=== PATIENT | male | born 1975 | race Caucasian/White ===

== ENCOUNTER 2020-12-05 07:18 | Day surgery (SDC) | payer OTHER, SELFPAY ==
[2020-12-02 11:55] VITALS: BMI 30.4
[2020-12-05 08:02] VITALS: BMI 30.7
[2020-12-05 08:04] VITALS: BP 138/92; PULSE 72; RESP 18; TEMP 36.5; O2SAT 98
--- NOTE | 2020-12-05 08:44 | P.CONAN_ITS ---
[facility] Past Medical History Medical History Depression History of posttraumatic stress disorder (PTSD) Family History Family history of problems with anesthesia: No Surgical History Surgical History H/O colonoscopy Hx of cholecystectomy Hx of knee surgery Hx of shoulder surgery History of Problems with Anesthesia: No Social History Social History Smoking Status: Never smoker Use of substances other than those prescribed or required for medical reasons: Yes Advance Directives: No Advance Directives Information Provided: Yes Meds Allergies Allergy/AdvReac Type Severity Reaction Status Date / Time pectin [PECTIN] Allergy Intermediate HISTAMINE Verified 12/05/20 08:00 REACTION morphine [MORPHINE] AdvReac Intermediate VOMITING Verified 12/05/20 08:00 Active Medications: Current Medications Generic Name Dose Route Start Last Admin Trade Name Freq PRN Reason Stop Dose Admin Lactated Ringer's 1,000 mls @ 20 mls/hr 12/05/20 08:45 Lr IVCONT .Q24H AIYANA Sodium Biphosphate/Sodium Phosphate 133 ml 12/05/20 07:59 Sodium Phosphate,Kendall-Dibasic 133 Ml Enema AK ONCE PRN Poor Colonoscopy Prep Results Home Medications Medication Instructions Recorded Confirmed Last Taken Type venlafaxine 75 mg PO DAILY 12/02/20 12/05/20 12/05/20 06:30 History Exam Exam Date and Time: December 05, 2020 0844 Height,Weight and Vital Signs: Height 5 ft 11 in Weight 99.79 kg Last Vital Signs Temp 97.7 F 12/05/20 08:04 Pulse 72 12/05/20 08:04 Resp 18 12/05/20 08:04 BP 138/92 H 12/05/20 08:04 Pulse Ox 98 12/05/20 08:04 Airway Mallampati Class: I TM Dist: >3cm Neck ROM: Full Loose/Missing/Broken Teeth: No Heart: ok Lungs: ok Assessment and Plan Assessment Anesthesia Assessment: Anesthesia Plan Discussed and Chart Reviewed Final Anesthetic Review NPO: Yes ASA Class: I Final Preanesthetic Review: No Changes in Pt Med Stat, Meds/Allgs Chart Reviewed, Consent Obtained/Reviewed and Anes Risks/Benef Reviewed Patient Risk: Low Procedure Risk: Intermediate Anesthetic Plan Anesthetic Plan: GA and Agree w/ Assess. and Plan
[2020-12-05] MEDS: Lactated Ringers 1,000 ML 20 ML IVCONT (08:46)
[2020-12-05 09:54] VITALS: BP 111/69; PULSE 60; RESP 20; TEMP 36.3; O2SAT 92
--- NOTE | 2020-12-05 09:58 | PM.OP ---
Brief Operative Note Date of Service: 12/05/20 Pre-op diagnosis: GERD, Diarrhea Post-op diagnosis: other (Gerd, Gastritis, Colon polyps, R/O Celiac disease, R/O Microscopic colitis) Procedure: EGD with biopsies, Colonoscopy to the cecum and TI with snare polypectomy x 3 with placement of Resolution clips on the asc. colon and at 20cm polyps, and biopsies Surgeon: Mynor Mccollum Anesthesia: MAC Estimated blood loss (mL): 4.0 Pathology: other (A. Desc. duodenum B. Gastric antrum C. EG Junction at 39cm D.Cecal polyp E. Asc. colon biopsies F. Asc. colon polyp G. Descending colon biopsies H. Polyp at 20cm I. Rectal polyp) Condition: stable Disposition: PACU
[2020-12-05 10:09] VITALS: BP 116/78; PULSE 54; RESP 17; TEMP 36.3; O2SAT 96
--- NOTE | 2020-12-09 12:55 | OP_ITS ---
SURGEON: Mynor Mccollum MD INDICATIONS: Full consent has been obtained from him for both procedures, including risks of bleeding and perforation. PREOPERATIVE DIAGNOSIS: POSTOPERATIVE DIAGNOSIS: PROCEDURE PERFORMED: Esophagogastroduodenoscopy with biopsies, and colonoscopy to cecum and terminal ileum with snare polypectomy, placement of resolution clips, and biopsies. ESTIMATED BLOOD LOSS: COMPLICATIONS: ANESTHESIA: Monitored anesthesia care. ASSISTANTS: SPECIMENS: PREOPERATIVE DIAGNOSES: Gastroesophageal reflux, diarrhea. POSTOPERATIVE DIAGNOSES: Gastroesophageal reflux, diarrhea, rule out celiac disease, rule out microscopic colitis, colon polyps, internal hemorrhoids. DESCRIPTION OF PROCEDURE: The patient was placed in the left lateral decubitus position. The Olympus video gastroscope was passed in the posterior oropharynx and upper esophagus under direct vision. The scope was passed slowly into the distal esophagus. The gastroesophageal junction appeared at 39 cm. This area was notable for some edema and erythema, but no jeff esophagitis nor Cardenas's esophagus. The scope entered into the stomach. There was a minimal hiatal hernia. The scope was advanced to pylorus and the duodenum was cannulated to the descending portion. The duodenum including the bulb was carefully inspected. There was a very minimal duodenitis in the duodenal bulb. Biopsies were obtained in the second and third portions of duodenum. The scope was withdrawn back in the stomach. The gastric antrum had some areas of erythema and edema, but no erosions or ulceration. There was good peristalsis. The scope was retroflexed visualizing the proximal stomach carefully, which appeared normal, without any sign of mass or ulceration. The scope was straightened. Biopsies were obtained from the gastric antrum. The scope was withdrawn back into the esophagus. Biopsies were obtained at the EG junction at 39 cm. Proximal to this, the esophageal mucosa appeared normal. The scope was withdrawn from the patient. He was turned around for colonoscopy. The digital rectal exam revealed no abnormalities. The Olympus video pediatric colonoscope was entered into the rectum and advanced easily to the cecum. Once in the cecum, I did identify cecal pouch with appendiceal orifice and a normal-appearing ileocecal valve. The terminal ileum was cannulated and appeared normal. The scope was withdrawn back in the colon. The entire cecum and ileocecal valve appeared normal other than a 3 mm polyp, which was biopsied and completely removed with cold biopsy forceps. The scope was slowly withdrawn assessing all mucosal surfaces carefully. Preparation was excellent. I did not visualize any sign of colitis nor angiodysplasia. Random biopsies were obtained in the ascending and descending colon to rule out microscopic colitis. In the ascending colon, was an approximately 12 mm polyp on a short stalk, which was snared and recovered by suction. A single resolution clip was placed with good hemostasis and good deployment. At 20 cm, was an approximately 12 mm polyp, which was snared. This appeared to be somewhat inflammatory in nature. The polyp was retrieved by suctioning it onto the tip of the scope was then withdrawn from the patient. The scope was readvanced back to the polypectomy site which appeared clean, without any sign of residual polyp nor bleeding. Two clips were applied for good hemostasis with good deployment. In the rectum, the scope was retroflexed visualizing small internal hemorrhoids. In the forward viewing position, there was an approximately 6 mm polyp, which was snared and recovered. The polypectomy site appeared clean, without any sign of residual polyp nor bleeding. The scope was withdrawn from the patient. He tolerated the procedure well and was returned to recovery area in stable condition. IMPRESSION: 1. Minimal hiatal hernia, gastroesophageal reflux. 2. Mild gastritis. 3. Rule out celiac disease. 4. Colon polyps. 5. Rule out microscopic colitis. 6. Small internal hemorrhoids. PLAN: The results of the biopsies will be checked. I would recommend a repeat colonoscopy in 5 years for further screening assuming at least one of the polyps is a tubular adenoma. 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 He is not having any symptoms of reflux and will therefore just use p.r.n. [id number] medication as needed for any reflux symptoms. He will be seen in 3 months for an office visit. MD IZA Ricardo/DYLAN / [id number]
== END 2020-12-05 11:14 | disposition home or self-care (01) ==
PROVIDERS: PCP Family Medicine; Visit Provider Internal Medicine
PROC: (CPT 45385; principal; 2020-12-05 08:20)
DX: R19.7 Diarrhea, unspecified (principal); D12.2 Benign neoplasm of ascending colon; K63.5 Polyp of colon; K62.1 Rectal polyp; K64.8 Other hemorrhoids; K21.9 Gastro-esophageal reflux disease without esophagitis; K29.70 Gastritis, unspecified, without bleeding; K29.80 Duodenitis without bleeding; K44.9 Diaphragmatic hernia without obstruction or gangrene; Z90.49 Acquired absence of other specified parts of digestive tract; Z79.899 Other long term (current) drug therapy; Z88.8 Allergy status to other drugs, medicaments and biological substances
CPT/HCPCS: 45385; 45380; 43239; 88305; 88342; J2405; J3010